=== PATIENT | male | born 1960 | race Caucasian/White ===

== ENCOUNTER 2018-06-24 18:30 | Inpatient (IN) | payer MEDICARE, OTHER ==
[~2018-06-24] VITALS: Ht 175.3 cm; Wt 90.7 kg
[~2018-06-24 18:30] MED LIST: LORA-476 PO; PHEN-1438 PO
--- NOTE | 2018-06-24 18:35 | NUR ---
PT BIBA ALS TO BED 8
[2018-06-24 18:45] VITALS: BP 163/99
--- NOTE | 2018-06-24 18:52 | NUR ---
CALLED POISON CONTROL, ADVISED TO DRAW PHENOBARBITOL LEVEL AND REPEAT IN 4 HOURS. ALSO ADIVESED FOR SUPPORTIVE CARE FOR POSSIBLE HYPOTENSION, HYPOTHERMIA, RESPIRATORY DEPRESSION, AND AIRWAY MANAGEMENT. ER MD NOTIFIED.
--- NOTE | 2018-06-24 19:04 | NUR ---
PT BIBA FOR DRUG OVERDOSE. PARAMEDICS FOUND PT ON DIRT IN [place] WITH EMPTY BOTTLE OF PHENOBARBITOL AND SMALL BOTTLE OF TEQUILA. PER PET FOOD DEBONER PT FRIENDS STATED HE WANTED TO KILL HIMSELF. PT STATED HE TOOK PHENOBARBITOL, BUT STATED "I DIDN'T TAKE ENOUGH" PT AAOX4, COOPERATIVE, PERRLA, GCS 14, MILD WEAKNESS BUE, UNSTEADY GAIT, SPEECH IS DELAYED. VSS. ER MD TO SEE PT. MEDHX:SIEZURES, DM, HTN, DEPRESSION
--- NOTE | 2018-06-24 19:25 | NUR ---
RECIEVED REPORT FROM DAY SHIFT RN. NO ACUTE DISTRESS NOTED. PT DENIES SUCIDIAL IDEATION. DENIES THOUGHTS OF WANTING TO HURT HIMSELF. VSS. EMT @ BEDSIDE. SAFETY PRECAUTIONS IN PLACE. BED LOCKED IN LOWEST POSITION. WILL CONTINUE TO OBSERVE.
--- NOTE | 2018-06-24 19:30 | NUR ---
Patient transferred to bed 5 for further care. RN evaluating patient at bedside.
[2018-06-24 20:08] LABS: BASOPHILS % (AUTO) 0.3 % (0.0-2.0); EOSINOPHILS % (AUTO) 0.5 % (0.0-4.0); HEMATOCRIT 42.8 % (36-52); HEMOGLOBIN 14.7 g/dL (12.0-18.0); LYMPHOCYTES # (AUTO) 1.4 K/uL (2.0-11.5); LYMPHOCYTES % (AUTO) 24.5 % (20.5-51.1); MEAN CORPUSCULAR HEMOGLOBIN 32 pg (27-31); MEAN CORPUSCULAR HGB CONC 34 g/dL (33-37); MONOCYTES # (AUTO) 0.4 K/uL (0.8-1.0); MONOCYTES % (AUTO) 6.6 % (1.7-9.3); NEUTROPHILS # (AUTO) 3.9 K/uL (1.8-7.7); NEUTROPHILS % (AUTO) 68.1 % (42.2-75.2); PLATELET COUNT (AUTO) 276 K/uL (140-450); RED BLOOD CELL COUNT(AUTO) 4.55 MIL/uL (4.20-6.10); WHITE BLOOD COUNT (AUTO) 5.7 K/uL (4.8-10.8)
[2018-06-24 20:50] LABS: APPEARANCE,URINE CLEAR (CLEAR); BILIRUBIN,URINE NEGATIVE (NEGATIVE); BLOOD, URINE NEGATIVE (NEGATIVE); COLOR,URINE YELLOW (YELLOW); LEUKOCYTE ESTERASE ,URINE NEGATIVE (NEGATIVE); NITRITE, URINE NEGATIVE (NEGATIVE); UGLUCOSE NEGATIVE (NEGATIVE)
[2018-06-24] MEDS ORDERED: IBUPROFEN 800 MG TAB PO ONE (20:50)
[2018-06-24 21:40] LABS: BARBITURATE, URINE POSITIVE ng/ml (NEG <=200); BENZODIAZEPINE, URINE NEGATIVE ng/mL (NEG <=200); CANNABINOID, URINE NEGATIVE ng/mL (NEG <=50); COCAINE, URINE NEGATIVE ng/mL (NEG <=300); OPIATE, URINE NEGATIVE ng/mL (NEG <=2000); PHENCYCLIDINE SCREEN,URINE NEGATIVE ng/mL (NEG <=25)
[2018-06-24 21:41] LABS: CARBON DIOXIDE 29.4 mmol/L (21-32); GFR ARICAN-AMERICAN 100 mL/min (>90); GLUCOSE 96 mg/dL (74-106); SODIUM SERUM 143 mmol/L (136-145); UREA NITROGEN, BLOOD 13 mg/dL (7-18)
[2018-06-24 21:42] LABS: ANION GAP 15.9 (8-16); CHLORIDE 101 mmol/L (98-107); POTASSIUM 3.3 mmol/L (3.5-5.1)
[2018-06-24 21:46] LABS: ALBUMIN 3.9 g/dL (3.4-5.0); ASPARTATE AMINOTRANSFERASE 28 U/L (15-37); TOTAL BILIRUBIN 0.2 mg/dL (0.0-1.0)
[2018-06-24 21:47] LABS: ACETAMINOPHEN < 0.5 ug/ml (10-30); SALICYLATE 4.3 mg/dL (2.8-20.0)
--- NOTE | 2018-06-24 22:11 | NUR ---
SPOKE TO POISON CONTROL REGARDING PT. GAVE REPORT. HOG DRIVER REQUESTED TO CALL BACK IF ANY QUESTIONS OR CHANGE IN PT STATUS. ER MD MADE AWARE
--- NOTE | 2018-06-24 23:41 | NUR ---
Ordered TelePsych consultation as requested by Dr. Davis.
--- NOTE | 2018-06-25 | NUR ---
PT DENIES SUICIDAL IDEATION @ THIS TIME. 1:1 SUPERVISION. SAFETY PRECAUTIONS IN PLACE. SEIZURE PRECAUTIONS IN PLACE. NO ACUTE DISTRESS NOTED. VSS. WILL CONTINUE TO OBSERVE.
--- NOTE | 2018-06-25 00:05 | NUR ---
Called the following contracted psych facilities regarding bed placement. [facility], spoke with Sudhir. No beds available tonight and they are not accepting packets at this time. [facility], spoke with Kamlesh. No bed vacancies tonight. [facility], spoke with nursing slab lifting supervisor Emiliano. No beds available tonight. [facility], spoke with Nelsy. No beds available tonight but they will accept a packet. Packet has been faxed for morning review. [facility], spoke with Dionna. No beds available tonight. [facility], spoke with Ami. They can not accommodate patients tonight. will update the ED when we get new information.
--- NOTE | 2018-06-25 00:19 | NUR ---
Packet has also been faxed to [facility] for review.
--- NOTE | 2018-06-25 03:00 | NUR ---
AWAITING TELE PSYCH CONSULT, PT DENIES SUICIDAL IDEATION. 1:1 SUPERVISION SAFETY PRECAUTIONS IN PLACE. SEIZURE PRECAUTIONS IN PLACE. NO ACUTE DISTRESS NOTED. VSS.
--- NOTE | 2018-06-25 05:45 | NUR ---
SPOKE WITH TELEPSYCH DOCTOR TOBI, GAVE UPDATE REGARDING PT STATUS.
--- NOTE | 2018-06-25 05:50 | NUR ---
TELE PSYCH, DR. BRITTON INTERVIEWING PATIENT.
--- NOTE | 2018-06-25 06:10 | NUR ---
SPOKE WITH PYSCHIATRIST, DR BRITTON; STATED HE WANTS TO KEEP HIM INPATIENT WITH 5150 HOLD. STATED HE WOULD SEND OVER RECCOMENDATIONS.
--- NOTE | 2018-06-25 07:15 | NUR ---
REPORT RECIEVED FROM JD/SILVIO. VSS AT THIS TIME. SITTER PRESENT. PT IS SLEEPING.
--- NOTE | 2018-06-25 07:17 | NUR ---
REPORT GIVEN TO DAY SHIFT RN FOR CONTINUITY OF CARE. NO ACUTE DISTRESS. VSS.
--- NOTE | 2018-06-25 07:57 | NUR ---
Pt transferred to Med/Surg via WITH SILVIO OSBORNE.
[2018-06-25 08:10] VITALS: BP 155/93
--- NOTE | 2018-06-25 08:10 | NUR ---
Patient will be admitted to care of DR COX. Admited to [facility]. Will go to room 108B. Belongings list completed. Report to JOCELYNN ANGUIANO .
--- NOTE | 2018-06-25 08:10 | NUR ---
PATIENT ARRIVED ON [facility] UNIT VIA GURNEY. ABLE TO AMBULATE WITH ASSISTANCE FROM ER GURFRENCH LICK TO [facility] BED. NO DISTRESS NOTED. DENIES ANY PAIN. AAOX3, CALM, COOPERATIVE, DELAYED AND SLURRED SPEECH. SKIN COLOR APPROPRIATE TO ETHNICITY, WARM TO TOUCH. SKIN INTACT. IV SITE INTACT, PATENT, AND ON SALINE LOCK. REVIEWED PLAN OF CARE WITH PATIENT. ORIENTED PATIENT TO ROOM. SAFETY MEASURES IN PLACE. SITTER AT BEDSIDE. WILL CONTINUE TO MONITOR.
--- NOTE | 2018-06-25 09:30 | NUR ---
DR. MARTINEZ AT BEDSIDE PERFORMING PSYCH EVALUATION ON PATIENT. WILL CONTINUE TO MONITOR.
[2018-06-25] MEDS ORDERED: MAG SULF 2000 MG/WATER PREMIX 50 ML IV PRN (10:55)
[2018-06-25] MEDS ORDERED: ALUMINUM HYD/MAG/SIMETHICONE 30 ML UDC PO PRN (10:55)
[2018-06-25] MEDS ORDERED: ACETAMINOPHEN 650 MG SUPP RC PRN (10:55)
[2018-06-25] MEDS ORDERED: MAGNESIUM OXIDE 400 MG TAB PO PRN (10:55)
[2018-06-25] MEDS ORDERED: LORazepam 2 MG/ML VIAL IVP PRN (10:55)
[2018-06-25] MEDS ORDERED: POTASSIUM CHLORIDE 40 MEQ, LIDOCAINE 1% 25 MG in NACL 0.9% 250 ML IV PRN (10:55)
[2018-06-25] MEDS ORDERED: guaiFENesin DM 200/20 MG-10 ML 10 ML UDC PO PRN (10:55)
[2018-06-25] MEDS ORDERED: cloNIDine 0.1 MG TAB PO PRN (10:55)
[2018-06-25] MEDS ORDERED: ZOLPIDEM 5 MG TAB PO PRN (10:55)
[2018-06-25] MEDS ORDERED: HYDROcodone/APAP 5/325 MG 1 TAB TAB PO PRN ×2 (10:55)
[2018-06-25] MEDS ORDERED: IPRATROPIUM 0.02% 0.5 MG/2.5 ML NEBU INH PRN (10:55)
[2018-06-25] MEDS ORDERED: ALBUTEROL 0.083% 2.5 MG/3 ML NEBU INH PRN (10:55)
[2018-06-25] MEDS ORDERED: MORPHINE SULFATE 2 MG/ML SYR IVP PRN (10:55)
[2018-06-25] MEDS ORDERED: diphenhydrAMINE 50 MG/ML VIAL IVP PRN (10:55)
[2018-06-25] MEDS ORDERED: SODIUM PHOSPHATE 118 ML ENEM RC PRN (10:55)
[2018-06-25] MEDS ORDERED: BISACODYL 10 MG SUPP RC PRN (10:55)
[2018-06-25] MEDS ORDERED: ONDANSETRON 4 MG/2 ML VIAL IVP PRN (10:55)
[2018-06-25] MEDS ORDERED: ACETAMINOPHEN 325 MG TAB PO PRN (10:55)
[2018-06-25] MEDS ORDERED: DOCUSATE SODIUM 250 MG GELCAP PO PRN (10:55)
[2018-06-25] MEDS ORDERED: POTASSIUM CHLORIDE 10 MEQ TABER PO SCH (11:30)
--- NOTE | 2018-06-25 12:45 | NUR ---
ASSISTED PATIENT TO BATHROOM AND BACK TO BED. SCHEDULED MEDICATIONS DUE GIVEN. WILL CONTINUE TO MONITOR.
--- NOTE | 2018-06-25 13:47 | NUR ---
PATIENT LYING DOWN IN BED SLEEPING, AROUSABLE BY VOICE. NO DISTRESS NOTED. DENIES ANY THOUGHTS OF HARMING SELF. SITTER AT BEDSIDE. WILL CONTINUE TO MONITOR.
[2018-06-25 16:00] VITALS: BP 155/90
--- NOTE | 2018-06-25 19:07 | NUR ---
GAVE REPORT TO NURSES' AIDE NURSE. PATIENT IN STABLE CONDITION.
--- NOTE | 2018-06-25 19:08 | NUR ---
RECEIVED BEDSIDE REPORT FROM DAY SHIFT NURSE JOCELYNN RN, PT STABLE, NO DISTRESS NOTED, IV TO R FA 20G PATENT, INTACT, SL, PT ON ROOM AIR, NO SOB, PT SLEEPING AT THIS MOMENT, INITIAL ASSESSMENT DONE, ALL SAFETY PRECAUTION MET, CALL LIGHT WITHIN REACH, WILL CONTINUE TO MONITOR. Addendum: 06/26/18 at 0003 by Susy Mahmood RN 1:1 SITTER AT BEDSIDE
--- NOTE | 2018-06-25 20:40 | NUR ---
PT COMPLAINTS OF HAVING HEADACHE, AND KNEE PAIN, PAIN MEDICATION PER DR ORDER ADMINISTERED, PT TOLERATED WELL, NO DISTRESS NOTED, CALL LIGHT WITHIN REACH, WILL CONTINUE TO MONITOR.
[2018-06-26 00:01] VITALS: BP 152/92
--- NOTE | 2018-06-26 00:01 | NUR ---
CHECKED ON PT, PT SLEEPING, NO DISTRESS NOTED, 1:1 SITTER AT BEDSIDE WILL CONTINUE TO MONITOR.
--- NOTE | 2018-06-26 04:22 | NUR ---
CHECKED ON PT, PT SLEEPING, NO DISTRESS NOTED, 1:1 SITTER AT BEDSIDE, WILL CONTINUE TO MONITOR.
--- NOTE | 2018-06-26 04:27 | NUR ---
Still no beds available for placement,will endorced to incoming shift to continue to look for placement.
[2018-06-26] MEDS ORDERED: POTASSIUM CHLORIDE 10 MEQ TABER PO PRN (06:00)
--- NOTE | 2018-06-26 07:26 | NUR ---
ENDORSED PT TO DAY SHIFT NURSE , PT STABLE, NO DISTRESS NOTED,SITTER AT BEDSIDE.
--- NOTE | 2018-06-26 07:30 | NUR ---
RECEIVED BEDSIDE REPORT FROM DIRECTOR OF RETAIL MARKETING RN. PT IN STABLE CONDITION. AOX4. DENIES SUICIDAL IDEATION- STATES THAT HE MADE A "MISTAKE" WITH THE OVERDOSE. DENIES VISUAL AND AUDITORY HALLUCINATIONS. ABLE TO AMBULATE WITH SLOW BUT STEADY GAIT. NO DISTRESS NOTED. DENIES ANY PAIN. SKIN WARM, DRY, AND INTACT. IV SITE PATIENT AND ASYMPTOMATIC, ON SL. REVIEWED PLAN OF CARE WITH PATIENT. ORIENTED PATIENT TO ROOM. SAFETY MEASURES IN PLACE. SITTER AT BEDSIDE FOR SUICIDAL PRECAUTIONS. WILL CONTINUE TO MONITOR.
[2018-06-26 08:00] VITALS: BP 144/88
[2018-06-26] MEDS ORDERED: MULTIVITAMIN 1 TAB PO SCH (09:00)
[2018-06-26] MEDS ORDERED: THIAMINE 100 MG TAB PO SCH (09:00)
[2018-06-26] MEDS ORDERED: FOLIC ACID 1 MG TAB PO SCH (09:00)
--- NOTE | 2018-06-26 09:15 | NUR ---
SCHEDULED MEDICATIONS ADMINISTERED. PT IS PLEASANT AND COOPERATIVE.
--- NOTE | 2018-06-26 10:21 | NUR ---
DISCUSSED PATIENT CONDITION WITH ABHISHEK FROM [facility]. PER ABHISHEK, [facility] SHOULD BE ABLE TO ACCEPT PATIENT TODAY. ABHISHEK TO CALL [facility] TO ARRANGE FOR TRANSPORT. NOTIFIED PATIENT OF THIS NEW UPDATE.
--- NOTE | 2018-06-26 12:29 | NUR ---
NOTIFIED FIREARMS INSTRUCTOR THAT [facility] CALLED AND STATED THEY WILL LIKELY BE ABLE TO ACCEPT PATIENT TODAY. ABHISHEK FROM [facility] TO CALL [facility].
--- NOTE | 2018-06-26 12:51 | NUR ---
CALLED PATIENT'S PER PT REQUEST REGARDING TENTATIVE PLANS TO TRANSFER TO [facility]. NO ANSWER- LEFT MESSAGE.
--- NOTE | 2018-06-26 13:18 | NUR ---
PATIENT ON ROOM AIR, PULSE OX SAT 97%. PATIENT DENIES SOB. PRN TX NOT INDICATED AT THIS TIME. NO RESPIRATORY DISTRESS NOTED AT THIS TIME. WILL CONTINUE TO MONITOR.
--- NOTE | 2018-06-26 15:56 | NUR ---
[facility] TWICE [phone] TO GIVE REPORT. NO ANSWER BOTH TIMES. WILL CONTINUE TO TRY TO CALL LATER. PATIENT HAS ALREADY BEEN NOTIFIED REGARDING PLANS TO TRANSFER BY [facility] "WITHIN AN HOUR".
[2018-06-26] MEDS ORDERED: PNEUMOCOCCAL VACCINE 23 MCG/0.5 ML VIAL IMVAC SCH (16:05)
--- NOTE | 2018-06-26 16:34 | NUR ---
PER JANNA CHEUNG, NO SBAR REPORT NEEDED.
--- NOTE | 2018-06-26 16:35 | NUR ---
DISCHARGE PAPERWORK GIVEN TO PATIENT. MEDICATION RECONCILIATION TEACHING GIVEN TO PATIENT. DISCUSSED CONTINUED PLAN OF CARE AT [facility]. PT VERBALIZED COMPLETE UNDERSTANDING OF ALL D/C TEACHING. ALL PERSONAL BELONGINGS OBTAINED FROM SECURITY AND ARE NOW WITH PATIENT. PATIENT IS DRESSED IN OWN CLOTHES. FLU VACCINE UP TO DATE. PNEUMOVAX ADMINISTERED- VACCINATION TEACHING GIVEN. OFFERED TO CALL REGARDING D/C PLANS BUT PATIENT REFUSED.
--- NOTE | 2018-06-26 17:15 | NUR ---
IV SITE REMOVED WITH MINIMAL BLOOD LOSS AND LUMEN COMPLETELY INTACT. ID BANDS REMOVED. REPORT GIVEN TO [facility]. PT IN STABLE CONDITION.
== END 2018-06-26 17:15 | DRG 918 ==
LOC: MED 18:30 → MTU 06-25 07:56
PROVIDERS: ADMIT Internal Medicine Pulmonary Disease; ATTEND Internal Medicine Pulmonary Disease
PROC: 3E0234Z Introduction of Serum, Toxoid and Vaccine into Muscle, Percutaneous Approach (ICD-10-PCS; principal; 2018-06-26)
DX: T42.3X2A Poisoning by barbiturates, intentional self-harm, initial encounter (principal); R45.851 Suicidal ideations; F32.9 Major depressive disorder, single episode, unspecified; F41.9 Anxiety disorder, unspecified; I10 Essential (primary) hypertension; E11.9 Type 2 diabetes mellitus without complications; F17.210 Nicotine dependence, cigarettes, uncomplicated; E87.6 Hypokalemia; G40.909 Epilepsy, unspecified, not intractable, without status epilepticus; F10.10 Alcohol abuse, uncomplicated; Y92.89 Other specified places as the place of occurrence of the external cause; Z88.8 Allergy status to other drugs, medicaments and biological substances; Z23 Encounter for immunization
CPT/HCPCS: 36415; 80053; 80305; 81003; 85025; 87081; 90732; 99285; G0480; G0482